=== PATIENT | male | born 1985 ===

== ENCOUNTER 2024-02-26 15:46 | Emergency (ER) | payer SELFPAY ==
[~2024-02-26] VITALS: Ht 182.9 cm; Wt 90.7 kg
[2024-02-26 16:19] VITALS: BP 133/89
[2024-02-26 16:30] VITALS: BP 129/82
[2024-02-26] MEDS ORDERED: DEXAMETHASONE SOD. PHOSPHATE 10 MG/ML VIAL IM ONE (16:30)
[2024-02-26] MEDS ORDERED: LIDOCAINE 4 % PATCH TD ONE (16:30)
[2024-02-26] MEDS ORDERED: oxyCODONE 5MG/ ACETAMINOPHEN 325MG TAB PO ONE (16:30)
[2024-02-26] MEDS ORDERED: METHOCARBAMOL 500 MG/TAB PO ONE (16:30)
[2024-02-26] MEDS ORDERED: KETOROLAC TROMETHAMINE 30 MG/ML SDV IM ONE (16:30)
[2024-02-26] MEDS ORDERED: PERCOCET 5/325M1 TAB PO (18:48)
[2024-02-26] MEDS ORDERED: IBUPROFEN600 MG PO (18:48)
[2024-02-26] MEDS ORDERED: PREDNISONE10 MG PO (18:48)
[2024-02-26] MEDS ORDERED: METHOCARBAMOL500 MG PO (18:48)
[2024-02-26] MEDS ORDERED: LIDOCARE ARM/NECK4 % TD (18:48)
[2024-02-26 19:18] VITALS: BP 129/82
== END 2024-02-26 19:18 | disposition home or self-care (01) | DRG 552 ==
LOC: ED 15:46
DX: M51.26 Other intervertebral disc displacement, lumbar region (principal)